=== PATIENT | male | born 1995 | race Caucasian/White ===

== ENCOUNTER 2021-04-29 18:40 | Emergency (ER) | payer OTHER ==
[~2021-04-29] VITALS: Ht 180.3 cm; Wt 77.1 kg
[2021-04-29 19:43] VITALS: BP 125/84
[2021-04-29 22:05] LABS: AMP/METHAMP Negative (Negative); BARBITURATES Negative (Negative); BENZODIAZEPINES Negative (Negative); COCAINE Negative (Negative); METHADONE Negative (Negative); OPIATES Negative (Negative); PCP Negative (Negative)
[2021-04-29] MEDS ORDERED: ATIVAN0.5 M1 PO (23:29)
[2021-04-29] MEDS ORDERED: VISTARIL 25 MG25 M1 PO (23:29)
== END 2021-04-30 | disposition home or self-care (01) ==
LOC: ER 18:40
PROVIDERS: Physician Assistant
DX: G47.9 Sleep disorder, unspecified (principal); F41.9 Anxiety disorder, unspecified